=== PATIENT | male | born 1940 | race African-American/Black ===

== ENCOUNTER 2018-09-30 17:46 | Inpatient (IN) | payer MEDICARE | END 2018-10-23 23:25 | LOC: TELE 10-01 01:06 → TELE-WESTW 10-12 18:06 → ER 17:46 | PROC: 30233R1 Transfusion of Nonautologous Platelets into Peripheral Vein, Percutaneous Approach (ICD-10-PCS; principal; ~2018-09-30) | PROC: 03733DZ Dilation of Right Subclavian Artery with Intraluminal Device, Percutaneous Approach (ICD-10-PCS; ~2018-09-30) | PROC: B51W1ZZ Fluoroscopy of Dialysis Shunt/Fistula using Low Osmolar Contrast (ICD-10-PCS; ~2018-09-30) | DX: J96.00 Acute respiratory failure, unspecified whether with hypoxia or hypercapnia (principal); G93.41 Metabolic encephalopathy; N18.6 End stage renal disease; J18.9 Pneumonia, unspecified organism; I13.2 Hypertensive heart and chronic kidney disease with heart failure and with stage 5 chronic kidney disease, or end stage renal disease; E44.0 Moderate protein-calorie malnutrition; I87.1 Compression of vein; E87.1 Hypo-osmolality and hyponatremia; I82.C11 Acute embolism and thrombosis of right internal jugular vein; I50.42 Chronic combined systolic (congestive) and diastolic (congestive) heart failure; I42.0 Dilated cardiomyopathy; E11.649 Type 2 diabetes mellitus with hypoglycemia without coma; E04.1 Nontoxic single thyroid nodule; Z99.2 Dependence on renal dialysis; I25.10 Atherosclerotic heart disease of native coronary artery without angina pectoris; F03.90 Unspecified dementia, unspecified severity, without behavioral disturbance, psychotic disturbance, mood disturbance, and anxiety; D63.8 Anemia in other chronic diseases classified elsewhere; N40.0 Benign prostatic hyperplasia without lower urinary tract symptoms; R16.0 Hepatomegaly, not elsewhere classified; D69.6 Thrombocytopenia, unspecified; Z95.810 Presence of automatic (implantable) cardiac defibrillator; I70.8 Atherosclerosis of other arteries; E11.22 Type 2 diabetes mellitus with diabetic chronic kidney disease; E83.39 Other disorders of phosphorus metabolism; Z79.899 Other long term (current) drug therapy; E78.5 Hyperlipidemia, unspecified; D37.8 Neoplasm of uncertain behavior of other specified digestive organs; I25.2 Old myocardial infarction ==